=== PATIENT | female | born 1995 | race African-American/Black ===

== ENCOUNTER 2020-10-23 18:51 | Emergency (ER) | payer SELFPAY ==
[~2020-10-23] VITALS: Ht 157.5 cm; Wt 66.0 kg
[2020-10-23] MEDS ORDERED: EMTRICITABINE 200MG CAPSULE PO ONE (19:15)
[2020-10-23] MEDS ORDERED: ONDANSETRON HCL 4MG TABLET PO ONE (19:30)
[2020-10-23 19:50] VITALS: BP 130/87
[2020-10-23] MEDS ORDERED: ZIDOVUDINE 300MG TABLET PO SCH (21:00)
== END 2020-10-23 20:00 | disposition home or self-care (01) ==
LOC: ER 18:51
DX: Z20.2 Contact with and (suspected) exposure to infections with a predominantly sexual mode of transmission (principal)
CPT/HCPCS: 99284; Q0162